=== PATIENT | female | born 1985 | race Caucasian/White ===

== ENCOUNTER → 2019-12-03 | Outpatient (CLI) | payer OTHER ==
--- NOTE | 2019-12-04 07:51 | EKG ---
[facility] [place] [address] ELECTROCARDIOGRAM REPORT Name: ESME GARNETT Room #: [facility].#: [id number] Admission: 12/03/19 Attend Phys: SIOBHAN Delgado family physic Discharge: Date of : 87 Report #: [id number] THIS REPORT FOR: cc: SIOBHAN Delgado family physician/PCP SIOBHAN Delgado family physician/PCP Isac Hutson MD [facility] THIS REPORT FOR: //name// [facility] Test Date: 2019-12-03 Test Time: 12:38:24 Pat Name: ESME GARNETT Department: Room: Gender: Instructor Adjunct Pharmacy Technician: Lian GREER : 1985 Requested By: SIOBHAN physician/PCP Order Number: [id number] MD: Isac Hutson Measurements Intervals [place] Rate: 70 P: 69 DC: 190 QRS: 49 QRSD: 94 T: 47 QT: 387 QTc: 418 Interpretive Statements Sinus rhythm RSR' in V1 or V2, probably normal variant No previous ECG available for comparison Electronically Signed On 12-04-2019 7:51:06 CDT by Isac Hutson [email or web address] <ELECTRONICALLY SIGNED> By: Isac Hutson MD, FACC 12/04/19 [id number] Isac Hutson MD, [facility] /EPI
== END ==
LOC: EDBD 11:55 → CV 11:55
DX: Z41.1 Encounter for cosmetic surgery (principal); I49.8 Other specified cardiac arrhythmias